=== PATIENT | male | born 1985 | race Caucasian/White ===

== ENCOUNTER 2019-06-19 01:50 | Observation (INO) | payer OTHER ==
[2019-06-19] MEDS ORDERED: KETOROLAC 30 MG/ML 1 ML VIAL IVP STA (02:22)
[2019-06-19] MEDS ORDERED: HYDROmorphone 0.5 MG/0.5 ML SYRINGE IVP STA (02:22)
[2019-06-19] MEDS ORDERED: SODIUM CHLORIDE 0.9% 1,000 ML IV STA (02:22)
[2019-06-19] MEDS ORDERED: ONDANSETRON 4 MG/2 ML VIAL IVP STA (02:22)
[2019-06-19] MEDS ORDERED: TAMSULOSIN 0.4 MG CAP.ER.24H PO STA (02:23)
[2019-06-19 02:48] LABS: Appearance,Urine Clear (Clear); Bilirubin,Urine Negative (Negative); Blood,Urine Small (Negative); Color,Urine Light Yellow; Glucose,Urine (UA) Negative (Negative); Ketones,Urine Negative (Negative); Leukocyte Esterase,Urine Negative (Negative); Mucus,Urine Rare /hpf; Nitrite,Urine Negative (Negative); PH, Urine 5.5 (5.0-8.0); Protein,Urine Negative (Negative); RBC,Urine 12 /hpf (0-5); Specific Gravity,Urine 1.013 (1.001-1.035); Urobilinogen,Urine <2.0 mg/dL (<2.0); WBC,Urine 1 /hpf (0-5)
[2019-06-19 03:18] LABS: Basophils # (A) 0.1 k/uL (0-0.2); Basophils % (A) 1 %; Eosinophils # (A) 0.3 k/uL (0-0.7); Eosinophils % (A) 4 %; HCT 42.1 % (39.0-53.0); HGB 14.7 gm/dL (13.0-17.5); Lymphocytes # (A) 1.8 k/uL (1.0-4.8); Lymphocytes % (A) 23 %; MCH 30.9 pg (25.0-35.0); MCHC 34.9 g/dL (31.0-37.0); MCV 88.6 fL (80.0-100.0); Mean Platelet Volume 7.1; Monocytes # (A) 0.4 k/uL (0-1.0); Monocytes % (A) 5 %; Neutrophils # (A) 5.2 k/uL (1.3-7.7); Neutrophils % (A) 66 %; Platelet Count 230 k/uL (150-450); RBC 4.75 m/uL (4.30-5.90); RDW 14.5 % (11.5-15.5); WBC 7.8 k/uL (3.8-10.6)
[2019-06-19 03:29] LABS: ALT 19 U/L (21-72); AST 22 U/L (17-59); African American GFR (CKD) >90 (>60 ml/min/1.73 sqM); Albumin 4.3 g/dL (3.5-5.0); Alkaline Phosphatase 57 U/L (38-126); Amylase 124 U/L (30-110); Anion Gap 10 mmol/L; Blood Urea Nitrogen 12 mg/dL (9-20); Calcium 8.9 mg/dL (8.4-10.2); Carbon Dioxide 25 mmol/L (22-30); Chloride 103 mmol/L (98-107); Glucose 105 mg/dL (74-99); Potassium 3.9 mmol/L (3.5-5.1); Sodium 138 mmol/L (137-145); Total Bilirubin 0.3 mg/dL (0.2-1.3); Total Protein 7.1 g/dL (6.3-8.2)
--- NOTE | 2019-06-19 03:58 | ED ---
Abdominal Pain HPI - General Chief Complaint: Abdominal Pain Stated Complaint: Abd Pain Time Seen by Provider: 06/19/19 02:15 Source: patient Mode of arrival: ambulatory Limitations: no limitations - History of Present Illness Initial Comments: 33-year-old male patient presents to the emergency department today for evaluation of left flank pain. Patient states this started approximately an hour prior to arrival. Patient states he is nauseous but has not vomited. Patient states the pain wraps around the left side of his abdomen. Patient denies fever, chills, constipation, diarrhea. Denies any hematuria, dysuria, urinary frequency, urinary urgency. States he is having some urinary retention. Patient denies any history of similar symptoms. Denies any history of abdominal surgery. Denies any significant alcohol intake, states he did have t hree beers over the weekend, but that is unusual for him. Denies any street drug use. Patient denies any recent rash, shortness breath, chest pain, numbness, tingling, dizziness, weakness, headache, visual changes, or any other complaints. - Related Data Allergies Allergy/AdvReac Type Severity Reaction Status Date / Time No Known Allergies Allergy Verified 06/19/19 02:08 Review of Systems ROS Statement: Those systems with pertinent positive or pertinent negative responses have been documented in the HPI. ROS Other: All systems not noted in ROS Statement are negative. Past Medical History Past Medical History: No Reported History History of Any Multi-Drug Resistant Organisms: None Reported Past Surgical History: No Surgical Hx Reported Past Psychological History: No Psychological Hx Reported Smoking Status: Never smoker Past Alcohol Use History: None Reported Past Drug Use History: Marijuana General Exam Limitations: no limitations General appearance: alert, in no apparent distress, other (This is a well-developed, well-nourished adult male patient in mild distress related to pain. Vital signs upon presentation are temperature 98.1F, pulse 89, respirations 16, blood pressure 120/75, pulse ox 99% on room air.) Eye exam: Present: normal appearance, PERRL, EOMI. Absent: scleral icterus, conjunctival injection, periorbital swelling ENT exam: Present: normal exam, normal oropharynx, mucous membranes moist Respiratory exam: Present: normal lung sounds bilaterally. Absent: respiratory distress, wheezes, rales, rhonchi, stridor Cardiovascular Exam: Present: regular rate, normal rhythm, normal heart sounds. Absent: systolic murmur, diastolic murmur, rubs, gallop, clicks GI/Abdominal exam: Present: soft, tenderness (Left-sided abdominal tenderness), normal bowel sounds. Absent: distended, guarding, rebound, rigid Back exam: Present: normal inspection, CVA tenderness (L). Absent: CVA tenderness (R) Neurological exam: Present: alert, oriented X3, CN II-XII intact Psychiatric exam: Present: normal affect, normal mood Skin exam: Present: warm, dry, intact, normal color. Absent: rash Course Vital Signs 06/19/19 06/19/19 02:06 04:09 Temperature 98.1 F Pulse Rate 89 59 L Respiratory 16 18 Rate Blood Pressure 120/75 128/93 O2 Sat by Pulse 99 100 Oximetry Medical Decision Making - Medical Decision Making 33-year-old male patient presented to the emergency department today for evaluation of left-sided abdominal pain and left flank pain. Patient is nauseated but did not vomit. Physical examination did reveal some left CVA tenderness. Some left-sided abdominal tenderness. Labs reviewed and did reveal elevated lipase at 1400. Patient's CT was positive for left-sided kidney stone. I did discuss findings and results with the patient. He'll be admitted for IV fluids and pain management. We will add toradol and flomax for management for kidney stone. US abdomen will be performed in the morning for further evaluation of the pancreatitis. Will hold consults pending results of the US. - Lab Data Result diagrams: 06/19/19 03:11 06/19/19 03:11 Lab Results 06/19/19 06/19/19 06/19/19 Range/Units 02:09 03:11 03:11 WBC 7.8 (3.8-10.6) k/uL RBC 4.75 (4.30-5.90) m/uL Hgb 14.7 (13.0-17.5) gm/dL Hct 42.1 (39.0-53.0) % MCV 88.6 (80.0-100.0) fL MCH 30.9 (25.0-35.0) pg MCHC 34.9 (31.0-37.0) g/dL RDW 14.5 (11.5-15.5) % Plt Count 230 (150-450) k/uL Neutrophils % 66 % Lymphocytes % 23 % Monocytes % 5 % Eosinophils % 4 % Basophils % 1 % Neutrophils # 5.2 (1.3-7.7) k/uL Lymphocytes # 1.8 (1.0-4.8) k/uL Monocytes # 0.4 (0-1.0) k/uL Eosinophils # 0.3 (0-0.7) k/uL Basophils # 0.1 (0-0.2) k/uL Sodium 138 (137-145) mmol/L Potassium 3.9 (3.5-5.1) mmol/L Chloride 103 (98-107) mmol/L Carbon Dioxide 25 (22-30) mmol/L Anion Gap 10 mmol/L BUN 12 (9-20) mg/dL Creatinine 0.85 (0.66-1.25) mg/dL Est GFR (CKD-EPI)AfAm >90 (>60 ml/min/1.73 sqM) Est GFR (CKD-EPI)NonAf >90 (>60 ml/min/1.73 sqM) Glucose 105 H (74-99) mg/dL Calcium 8.9 (8.4-10.2) mg/dL Total Bilirubin 0.3 (0.2-1.3) mg/dL AST 22 (17-59) U/L ALT 19 L (21-72) U/L Alkaline Phosphatase 57 (38-126) U/L Total Protein 7.1 (6.3-8.2) g/dL Albumin 4.3 (3.5-5.0) g/dL Amylase 124 H (30-110) U/L Lipase 1493 H (23-300) U/L Urine Color Light Yellow Urine Appearance Clear (Clear) Urine pH 5.5 (5.0-8.0) Ur Specific [place] 1.013 (1.001-1.035) Urine Protein Negative (Negative) Urine Glucose (UA) Negative (Negative) Urine Ketones Negative (Negative) Urine Blood Small H (Negative) Urine Nitrite Negative (Negative) Urine Bilirubin Negative (Negative) Urine Urobilinogen <2.0 (<2.0) mg/dL Ur Leukocyte Esterase Negative (Negative) Urine RBC 12 H (0-5) /hpf Urine WBC 1 (0-5) /hpf Urine Mucus Rare H (None) /hpf - Radiology Data Radiology results: report reviewed CT abdomen and pelvis without contrast was obtained. Report was reviewed in its entirety. Impression by Dr. Madison shows mild left hydroureteronephrosis secondary to 2-3 mm stone in the left UVJ. Punctate nonobstructive stone in both kidneys. Disposition Clinical Impression: Pancreatitis, Kidney stone on left side Disposition: [facility] Condition: Serious Referrals: Nonstaff,Physician [Primary Care Provider] - 1-2 days Decision to Admit Reason: Admit from EC Decision Date: 06/19/19 Decision Time: 04:28
--- NOTE | 2019-06-19 04:04 | CT ---
EXAM: CT Abdomen and Pelvis Without Intravenous Contrast CLINICAL HISTORY: ITS.REASON CT Reason: abdominal pain TECHNIQUE: Axial computed tomography images of the abdomen and pelvis without intravenous contrast. CTDI is 8 mGy and DLP is 431 mGy-cm. This CT exam was performed using one or more of the following dose reduction techniques: automated exposure control, adjustment of the mA and/or kV according to patient size, and/or use of iterative reconstruction technique. COMPARISON: No relevant prior studies available. FINDINGS: Lung bases: No mass. No consolidation. ABDOMEN: Liver: Unremarkable. Gallbladder and bile ducts: Unremarkable. Pancreas: No ductal dilation. Spleen: Unremarkable. Adrenals: Unremarkable. Kidneys and ureters: Mild left hydroureteronephrosis secondary to a 2-3 mm stone in the left UVJ. Punctate nonobstructive stone in both kidney. Stomach and bowel: No bowel obstruction. No bowel wall thickening. PELVIS: Appendix: No appendicitis. Bladder: No stones. Reproductive: Unremarkable. ABDOMEN and PELVIS: Intraperitoneal space: Unremarkable. Bones/joints: No acute fractures. Moderate disc height loss at L5-S1 with vacuum phenomenon. Soft tissues: Unremarkable. Vasculature: No abdominal aortic aneurysm. Lymph nodes: No enlarged lymph nodes. IMPRESSION: Mild left hydroureteronephrosis secondary to a 2-3 mm stone in the left UVJ. Punctate nonobstructive stone in both kidney.
[2019-06-19] MEDS ORDERED: NALOXONE 0.4 MG/ML 1 ML VIAL IV PRN (04:25)
[2019-06-19] MEDS ORDERED: HYDROmorphone 0.5 MG/0.5 ML SYRINGE IVP PRN (04:25)
[2019-06-19] MEDS ORDERED: ONDANSETRON 4 MG/2 ML VIAL IVP PRN ×2 (04:25→16:23)
[2019-06-19] MEDS: SODIUM CHLORIDE 0.9% 1,000 ML IV SCH ×3 (04:56→23:59)
--- NOTE | 2019-06-19 07:47 | US ---
EXAMINATION TYPE: US abdomen limited DATE OF EXAM: 06/19/2019 COMPARISON: CT earlier today. CLINICAL HISTORY: Pancreatitis. ABD pain, abnormal labs, pancreatitis EXAM MEASUREMENTS: Liver Length: 16.5 cm Gallbladder Wall: 0.2 cm CBD: 0.5 cm Right Kidney: 12.3 x 4.0 x 4.6 cm Pancreas: 3mm pancreatic duct visualized, tail obscured by overlying bowel gas Liver: wnl Gallbladder: wnl Evidence for sonographic Middleton's sign: No CBD: wnl Right Kidney: No evidence of hydro, possible renal stone at mid portion= 4mm Visualized pancreas shows no worrisome mass. Duct is seen but measures upper limits of normal. Findin gs correlate with recent CT. Visualized liver shows no mass or ductal dilatation. Gallbladder is seen without shadowing mobile gallstones. No hydronephrosis on limited images of right kidney. IMPRESSION: No ultrasound evidence for complication related to acute pancreatitis. Findings correlate with CT earlier today.
[2019-06-19 08:07] VITALS: RESP 16
[2019-06-19] MEDS: TAMSULOSIN 0.4 MG CAP.ER.24H PO SCH (08:33)
[2019-06-19 10:09] LABS: ALT 35 U/L (21-72); AST 19 U/L (17-59); African American GFR (CKD) >90 (>60 ml/min/1.73 sqM); Albumin 3.8 g/dL (3.5-5.0); Alkaline Phosphatase 54 U/L (38-126); Anion Gap 5 mmol/L; Blood Urea Nitrogen 10 mg/dL (9-20); Calcium 8.6 mg/dL (8.4-10.2); Carbon Dioxide 27 mmol/L (22-30); Chloride 107 mmol/L (98-107); Glucose 94 mg/dL (74-99); Potassium 3.9 mmol/L (3.5-5.1); Sodium 139 mmol/L (137-145); Total Bilirubin 0.3 mg/dL (0.2-1.3); Total Protein 6.4 g/dL (6.3-8.2)
[2019-06-19] MEDS ORDERED: HYDROcodone/APAP 7.5-325MG 1 EACH TAB PO PRN (10:32)
[2019-06-19] MEDS: KETOROLAC 30 MG/ML 1 ML VIAL IVP PRN ×3 (10:35→23:30)
[2019-06-19] MEDS ORDERED: DOCUSATE 100 MG CAP PO PRN (11:38)
--- NOTE | 2019-06-19 13:41 | P.HPIM ---
History of Present Illness 33-year-old male came in with compensative left flank pain crampy in nature severe radiated to the front improved with Toradol. Patient is found to have a 2-3 mm kidney stone years is not consistent with UTI patient does not have any symptoms of UTI including increased urinary frequency dysuria suprapubic pain. Patient has mildly elevated lipase which is nonspecific doesn't have any symptoms consistent with pancreatitis patient will be started on diet with advance as tolerated patient will be continued on IV fluids once his passes a stone patient probably can be discharged at that time. Review of Systems REVIEW OF SYSTEMS: CONSTITUTIONAL: No fever, no malaise, no fatigue. HEENT: No recent visual problems or hearing problems. Denied any sore throat. CARDIOVASCULAR: No chest pain, orthopnea, PND, no palpitations, no syncope. PULMONARY: No shortness of breath, no cough, no hemoptysis. GASTROINTESTINAL: No diarrhea, no nausea, no vomiting, NEUROLOGICAL: No headaches, no weakness, no numbness. HEMATOLOGICAL: Denies any bleeding or petechiae. GENITOURINARY: Denies any burning micturition, frequency, or urgency. MUSCULOSKELETAL/RHEUMATOLOGICAL: Denies any joint pain, swelling, or any muscle pain. ENDOCRINE: Denies any polyuria or polydipsia. The rest of the 14-point review of systems is negative. Past Medical History Past Medical History: No Reported History History of Any Multi-Drug Resistant Organisms: None Reported Past Surgical History: No Surgical Hx Reported Past Psychological History: No Psychological Hx Reported Smoking Status: Never smoker Past Alcohol Use History: None Reported Past Drug Use History: Marijuana - Past Family History Mother Family Medical History: COPD, Fibromyalgia, Musculoskeletal Disorder, Rheumatoid Arthritis (RA), Sleep Apnea/CPAP/BIPAP Medications and Allergies Home Medications Medication Instructions Recorded Confirmed Type Ibuprofen [Motrin Ib] 600 mg PO Q6H PRN 06/19/19 06/19/19 History Allergies Allergy/AdvReac Type Severity Reaction Status Date / Time No Known Allergies Allergy Verified 06/19/19 07:50 Physical Exam Vitals: Vital Signs Temp Pulse Pulse Resp BP BP Pulse Ox 06/19/19 07:00 97.6 F 60 16 114/64 99 06/19/19 05:13 97.7 F 59 L 18 115/71 95 06/19/19 04:09 59 L 18 128/93 100 06/19/19 02:06 98.1 F 89 16 120/75 99 Intake and Output 06/18/19 06/19/19 06/19/19 22:59 06:59 14:59 Other: # Voids 1 Weight 74.843 kg PHYSICAL EXAMINATION: GENERAL: The patient is alert and oriented x3, not in any acute distress. Well developed, well nourished. HEENT: Pupils are round and equally reacting to light. EOMI. No scleral icterus. No conjunctival pallor. Normocephalic, atraumatic. No pharyngeal erythema. No thyromegaly. CARDIOVASCULAR: S1 and S2 present. No murmurs, rubs, or gallops. PULMONARY: Chest is clear to auscultation, no wheezing or crackles. ABDOMEN: Soft, nontender, nondistended, normoactive bowel sounds. No palpable organomegaly. MUSCULOSKELETAL: No joint swelling or deformity.mild left CVA tenderness EXTREMITIES: No cyanosis, clubbing, or pedal edema. NEUROLOGICAL: Gross neurological examination did not reveal any focal deficits. SKIN: No rashes. Results CBC & Chem 7: 06/19/19 03:11 06/19/19 09:34 Labs: Abnormal Lab Results - Last 24 Hours (Table) 06/19/19 06/19/19 Range/Units 02:09 03:11 Glucose 105 H (74-99) mg/dL ALT 19 L (21-72) U/L Amylase 124 H (30-110) U/L Lipase 1493 H (23-300) U/L Urine Blood Small H (Negative) Urine RBC 12 H (0-5) /hpf Urine Mucus Rare H (None) /hpf Thrombosis Risk Factor Assmnt - Choose All That Apply Any of the Below Risk Factors Present?: No Other Risk Factors: No Other congenital or acquired thrombophilia - If yes, enter type in comment: No Thrombosis Risk Factor Assessment Level: Very Low Risk Assessment and Plan Plan: abdominal pain mostly secondary to nephrolithiasis I suspicion is low for pancreatitis in spite of elevated lipase. Patient will continue on IV fluids pain medications once his symptoms improve patient will be discharged patient will be started on diet -Elevated lipase on specific elevation of lipase clinically do not believe patient has pancreatitis
[2019-06-19] MEDS ORDERED: MAGNESIUM HYDROXIDE 2,400 MG/10 ML CUP PO PRN (15:01)
[2019-06-19] MEDS ORDERED: METOCLOPRAMIDE 5 MG/ML 2 ML VIAL IM PRN (16:20)
[2019-06-19] MEDS ORDERED: METOCLOPRAMIDE 5 MG/ML 2 ML VIAL IVP PRN (16:33)
[2019-06-19] MEDS: PANTOPRAZOLE 40 MG/10 ML VIAL IVP SCH (17:50)
[2019-06-20] MEDS: SODIUM CHLORIDE 0.9% 1,000 ML IV SCH (07:51)
[2019-06-20] MEDS: TAMSULOSIN 0.4 MG CAP.ER.24H PO SCH (07:51)
[2019-06-20] MEDS: PANTOPRAZOLE 40 MG/10 ML VIAL IVP SCH (07:51)
[2019-06-20 08:06] VITALS: BP 122/60; PULSE 87; TEMP 98.7
--- NOTE | 2019-06-20 09:29 | P.GSCN ---
History of Present Illness Consult date: 06/20/19 History of present illness: This is a pleasant 33-year-old gentleman who on the day of admission developed severe left flank and lower quadrant pain. He also had severe you your KUB of urinary symptoms. He came to the emergency room where a kidney stone was suspected. A computed tomography scan of the abdomen was obtained identifying some mild left hydronephrosis due to a 3 mm distal ureteral stone on the left. This is the patient's first stone. He is feeling much better this morning. His irritative bladder symptoms have disappeared as has his flank pain. His no family history of stones. He has not had previous hematuria or on explain back pain. He works as a construction framer. There are 2 miniscule else indications remaining in the kidney. He had an elevated lipase consistent with inflammation of the pancreas which is not uncommon with a left-sided stone. The lipase level is normalizing. He was not drinking at the time of the stone. He takes an occasional Tums. Review of Systems All systems: negative - Constitutional Denies fever, Denies weight loss - EENT Eyes: denies blurred vision Ears, nose, mouth and throat: Denies dysphagia - Cardiovascular Denies chest pain, Denies shortness of breath - Respiratory Denies cough, Denies 7 - Gastrointestinal Reports as per HPI - Genitourinary Denies dysuria, Denies hematuria - Integumentary Denies rash, Denies unusual bruising - Neurological Denies headaches, Denies syncope - Hematologic/Lymphatic Denies easy bleeding, Denies easy bruising Past Medical History Past Medical History: No Reported History History of Any Multi-Drug Resistant Organisms: None Reported Past Surgical History: No Surgical Hx Reported Past Psychological History: No Psychological Hx Reported Smoking Status: Never smoker Past Alcohol Use History: None Reported Past Drug Use History: Marijuana - Past Family History Mother Family Medical History: COPD, Fibromyalgia, Musculoskeletal Disorder, Rheumatoid Arthritis (RA), Sleep Apnea/CPAP/BIPAP Medications and Allergies Home Medications Medication Instructions Recorded Confirmed Type Ibuprofen [Motrin Ib] 600 mg PO Q6H PRN 06/19/19 06/19/19 History Allergies Allergy/AdvReac Type Severity Reaction Status Date / Time No Known Allergies Allergy Verified 06/19/19 07:50 Surgical - Exam Vital Signs Temp Pulse Resp BP Pulse Ox 98.1 F 89 16 120/75 99 06/19/19 02:06 06/19/19 02:06 06/19/19 02:06 06/19/19 02:06 06/19/19 02:06 - General well developed, well nourished, no distress - Eyes PERRL - ENT no hearing loss - Neck trachea midline - Respiratory normal expansion, normal respiratory effort - Cardiovascular Rhythm: regular - Abdomen Abdomen: soft, non tender - Genitourinary normal penis with no external lesions, testicles present - Integumentary Multiple tattoos no rash, no growths - Neurologic normal coordination, normal sensation - Musculoskeletal normal posture - Psychiatric oriented to time, oriented to person, oriented to place, speech is normal, memory intact Results - Labs 06/19/19 03:11 06/19/19 09:34 Abnormal Lab Results - Last 24 Hours (Table) 06/20/19 Range/Units 06:38 Lipase 489 H (23-300) U/L Diabetes panel 06/19/19 Range/Units 09:34 Sodium 139 (137-145) mmol/L Potassium 3.9 (3.5-5.1) mmol/L Chloride 107 (98-107) mmol/L Carbon Dioxide 27 (22-30) mmol/L BUN 10 (9-20) mg/dL Creatinine 0.87 (0.66-1.25) mg/dL Glucose 94 (74-99) mg/dL Calcium 8.6 (8.4-10.2) mg/dL AST 19 (17-59) U/L ALT 35 (21-72) U/L Alkaline Phosphatase 54 (38-126) U/L Total Protein 6.4 (6.3-8.2) g/dL Albumin 3.8 (3.5-5.0) g/dL Calcium panel 06/19/19 Range/Units 09:34 Calcium 8.6 (8.4-10.2) mg/dL Albumin 3.8 (3.5-5.0) g/dL Pituitary panel 06/19/19 Range/Units 09:34 Sodium 139 (137-145) mmol/L Potassium 3.9 (3.5-5.1) mmol/L Chloride 107 (98-107) mmol/L Carbon Dioxide 27 (22-30) mmol/L BUN 10 (9-20) mg/dL Creatinine 0.87 (0.66-1.25) mg/dL Glucose 94 (74-99) mg/dL Calcium 8.6 (8.4-10.2) mg/dL Adrenal panel 06/19/19 Range/Units 09:34 Sodium 139 (137-145) mmol/L Potassium 3.9 (3.5-5.1) mmol/L Chloride 107 (98-107) mmol/L Carbon Dioxide 27 (22-30) mmol/L BUN 10 (9-20) mg/dL Creatinine 0.87 (0.66-1.25) mg/dL Glucose 94 (74-99) mg/dL Calcium 8.6 (8.4-10.2) mg/dL Total Bilirubin 0.3 (0.2-1.3) mg/dL AST 19 (17-59) U/L ALT 35 (21-72) U/L Alkaline Phosphatase 54 (38-126) U/L Total Protein 6.4 (6.3-8.2) g/dL Albumin 3.8 (3.5-5.0) g/dL - Imaging CT scan - abdomen: report reviewed, image reviewed CT scan - pelvis: report reviewed, image reviewed Assessment and Plan Assessment: Impression: Left ureteral calculus, probably passed. Abnormal amylase and lipase probably secondary to inflammation due to ureteral obstruction. Normalizing. Recommendations: Most likely this patient has passed this stone. I did explain to him since the stone was not collected I cannot say this for absolute certain. However if he hasn't passed that he will. The elevated lipase and amylase are not uncommon with left-sided kidney stones and this is most likely due to inflammation of the pancreas due to an inflamed kidney. From my standpoint nothing further needs to be done with this. From a urologic standpoint he can be discharged home. I have given him my card such that if further problems arise he can contact me. I did give him some basic dietary discussion about calcium oxalate stones.
--- NOTE | 2019-06-20 14:09 | P.DS ---
Providers Date of admission: 06/19/19 04:47 Attending physician: Alvina Gutierrez Consults: 06/19/19 16:22 Consult Physician Routine Consulting Provider: Aashish Rabago Consult Reason/Comments: kidney stones Do you want consulting provider notified?: Yes Primary care physician: Physician Nonstaff Hospital Course: patient given with abdominal pain secondary to nephrolithiasis. Insulin nonobstructive nephrolithiasis because of which initially didn't consult urology, patient started vomiting and yesterday after eating because of which I repeated lipase level which came came down my suspicion is extremely low for pancreatitis, patient in today completely dissolved neurology evaluated the patient because of his continued pain and if consulting neurology no further recommendations from that perspective patient may have passed a stone. Patient's symptoms completely resolved and will be discharged today PHYSICAL EXAMINATION: GENERAL: The patient is alert and oriented x3, not in any acute distress. Well developed, well nourished. HEENT: Pupils are round and equally reacting to light. EOMI. No scleral icterus. No conjunctival pallor. Normocephalic, atraumatic. No pharyngeal erythema. No thyromegaly. CARDIOVASCULAR: S1 and S2 present. No murmurs, rubs, or gallops. PULMONARY: Chest is clear to auscultation, no wheezing or crackles. ABDOMEN: Soft, nontender, nondistended, normoactive bowel sounds. No palpable organomegaly. MUSCULOSKELETAL: No joint swelling or deformity. EXTREMITIES: No cyanosis, clubbing, or pedal edema. NEUROLOGICAL: Gross neurological examination did not reveal any focal deficits. SKIN: No rashes. Please refer to my HPI for further details of hospitalization course Patient Condition at Discharge: Serious Plan - Discharge Summary New Discharge Prescriptions: New Ranitidine HCl [Zantac] 150 mg PO BID #20 tab No Action Ibuprofen [Motrin Ib] 600 mg PO Q6H PRN PRN Reason: Pain Discharge Medication List Ibuprofen [Motrin Ib] 600 mg PO Q6H PRN 06/19/19 [History] Ranitidine HCl [Zantac] 150 mg PO BID #20 tab 06/20/19 [Rx] Follow up Appointment(s)/Referral(s): Maki San MD [STAFF PHYSICIAN] - 07/03/19 3:00 pm ( bring insurance card and liscense and come a little early) Nonstaff,Physician [Primary Care Provider] - 1-2 days Patient Instructions/Handouts: Kidney Stones (DC) Discharge Disposition: HOME SELF-CARE
== END 2019-06-20 13:00 | disposition home or self-care (01) ==
LOC: EC 01:50 → UNDOADMIN 04:47 → 4SSUR 04:47 → INTOOBSV 04:47 → UNDODISIN 06-20 13:00
PROVIDERS: ADMIT Hospitalist; ATTEND Hospitalist
DX: N13.2 Hydronephrosis with renal and ureteral calculous obstruction (principal); R74.8 Abnormal levels of other serum enzymes; Z82.5 Family history of asthma and other chronic lower respiratory diseases; Z82.61 Family history of arthritis; Z82.69 Family history of other diseases of the musculoskeletal system and connective tissue; Z83.6 Family history of other diseases of the respiratory system
CPT/HCPCS: 96376; 96375 ×3; 96374; 99285; 36415; 80053; 82150; 83690 ×2; 85025; 81001; 76705; 74176; G0378 ×2; J2765; J2405; J1885; C9113; J1170; 96361